=== PATIENT | male | born 1965 | race Caucasian/White ===

== ENCOUNTER 2017-04-15 07:42 | Observation (INO) | payer BC, OTHER ==
[2017-04-15] VITALS (8 sets, daily range): BP systolic 118–135; BP diastolic 68–97
[~2017-04-15] VITALS: Ht 180.3 cm; Wt 97.5 kg
--- NOTE | ~2017-04-15 | P ---
[facility] [place] [address] PROCEDURE REPORT Name: GARCIA BURRIS Room #: 219-P [facility] M..#: [id number] Admission: 04/15/17 Attend Phys: Fred Tellez MD Discharge: Date of : 67 Report #: [id number] THIS REPORT FOR: //name// CC: Martín Tellez Lizy De La Cruzer DATE OF SERVICE: 04/15/2017 PREOPERATIVE DIAGNOSIS: Paroxysmal atrial fibrillation. POSTOPERATIVE DIAGNOSIS: Paroxysmal atrial fibrillation. PROCEDURE PERFORMED: 1. AFib ablation, CPT code 40511. 2. 3D mapping, CPT code 77114. 3. Intracardiac echo, CPT code 92130. HISTORY: The patient is a 51-year-old with a history of recurrent paroxysmal atrial fibrillation, here for AFib ablation. ANESTHESIA: The patient underwent general anesthesia with no anesthesia related complications. DESCRIPTION OF PROCEDURE: The patient underwent informed consent. We discussed the details of the procedure including the risks, which include but are not limited to bleeding, vascular damage, cardiac perforation, stroke and NC. He understood these risks and was willing to proceed. As such, he was brought to the EP laboratory in a fasting and sedated state and prepped and draped in a sterile fashion. I injected lidocaine to the right groin region, obtained access to the right femoral vein times 3, placing an 8-Kyrgyz, 9-Kyrgyz and 7-Kyrgyz locking sheath. Under fluoroscopy, I placed a decapolar catheter easily in the coronary sinus and an ice catheter into the right atrium. Next, I created a detailed 3D geometry of the left atrium using [employer] and this was merged with the cardiac CT scan. Next, the patient was systemically heparinized and a transseptal was performed using a Jermyn needle and a SL1 sheath crossing the left atrium with ease. I then placed a Lasso catheter into the left atrium and created a detailed 3D geometry of the left atrium and took baseline measurements from the pulmonary veins. Of note, the patient had a left superior and left inferior pulmonary vein and the right-sided veins shared a common ostium. Next, I isolated the left superior pulmonary vein with two 4-minute freezes. The left pulmonary vein isolated after 45 seconds into the second freeze. Next, I turned my attention to the left inferior pulmonary vein and I performed 2 freezes, 1 freeze was 4 minutes and the other freeze was 4-1/2 minutes. The vein isolated within 75 seconds of the second [facility] [address] [place] [address] PROCEDURE REPORT Name: GARCIA BURRIS Room #: 219-P [facility]#: [id number] Admission: 04/15/17 Attend Phys: Fred Tellez MD Discharge: Date of : 67 Report #: [id number] freeze. Next, I turned my attention to the right common ostium. This vein required a total of 3 freezes. Of 3 freezes were 4 minutes of duration. The first freeze reached a temperature of -40 degrees. The second freeze reached a temperature of -50 degrees. The second freeze was the best freeze as it encompassed the entire common ostium. The final freeze was more of an inferior freeze and this reached a temperature of -39 degrees. I used my Achieve catheter to verify that the ostium was isolated. Prior to ablation, there were large signals in this region and these were absent post-ablation. I went back and re-interrogated the left-sided veins and these remained isolated. The left superior pulmonary vein has large far field left atrial appendage electrograms. I did perform a pacing and demonstrated there was entrance and exit block in this vein. As such, the procedure was concluded. Pre-ablation, the patient was in sinus rhythm with a sinus cycle length of 975 milliseconds, KS interval 160 milliseconds, QRS duration 80 milliseconds, QT interval 450 milliseconds. Post-ablation, the patient remained in sinus rhythm with a sinus cycle length of 856 milliseconds, KS interval 160 milliseconds, QRS duration 80 milliseconds and QT interval 430 milliseconds. CONCLUSIONS: Successful AFib ablation with isolation of the left superior, left inferior and right common pulmonary veins. By: [id number] Fred Tellez MD /nt
[2017-04-15] MEDS ORDERED: PRADAXA150 MG PO (08:00)
[2017-04-15] MEDS ORDERED: AMLODIPINE-OLM1 EAC2 PO (08:03)
[2017-04-15] MEDS ORDERED: BYSTOLIC10 MG PO (08:03)
[2017-04-15] MEDS ORDERED: LIVALO4 MG PO (08:04)
[2017-04-15] MEDS ORDERED: XANAX 0.5 MG0.5 MG PO (08:05)
[2017-04-15 08:11] LABS: RDW 12.7 % (10.5-14.5); WBC 7.8 thou/uL (4.0-11.0)
[2017-04-15 08:18] LABS: CALCIUM 9.3 mg/dL (8.5-10.1); CREATININE 1.1 mg/dL (0.7-1.3); POTASSIUM 3.9 mmol/L (3.5-5.1)
[2017-04-15 08:23] LABS: PROTIME 9.7 Seconds (9.3-11.4)
[2017-04-15 08:24] LABS: ALBUMIN 3.9 g/dL (3.4-5.0); TOTAL BILIRUBIN 0.4 mg/dL (<0.1-1.0); TOTAL PROTEIN 7.4 g/dL (6.4-8.2)
[2017-04-15 08:25] LABS: ABSOLUTE NEUTROPHILS 4.5 thou/uL (1.4-8.2); BASOPHILS 1.2 % (0.0-2.0); EOSINOPHILS 6.2 % (0.0-3.0); HEMATOCRIT 44.7 % (42.0-52.0); LYMPHOCYTES 23.7 % (24.0-44.0); MCH 31.8 pg (26.0-34.0); MCHC 35.7 g/dL (28.0-37.0); MONOCYTES 10.6 % (1.0-8.0); PLATELET COUNT 252 thou/uL (150-400); POLYS 58.3 % (36.0-66.0); RBC 5.02 mil/uL (4.50-6.00)
[2017-04-15 08:31] LABS: MANUAL DIFF NO
[2017-04-16 03:08] VITALS: BP 118/69
[2017-04-16 07:49] VITALS: BP 122/64
[2017-04-16] MEDS ORDERED: TAMBOCOR 100 M100 M1 PO (11:02)
[2017-04-16 11:05] VITALS: BP 120/76
[2017-04-16 11:20] VITALS: BP 120/76
== END 2017-04-16 12:05 | disposition home or self-care (01) ==
LOC: CATH 07:42 → 2N 09:37 → CATH 13:05 → 2N 14:08 → CATH 15:10 → 2N 04-16 12:05
PROVIDERS: Internal Medicine Cardiovascular Disease
DX: I48.0 Paroxysmal atrial fibrillation (principal); I10 Essential (primary) hypertension; F41.9 Anxiety disorder, unspecified; E78.00 Pure hypercholesterolemia, unspecified; G47.30 Sleep apnea, unspecified
CPT/HCPCS: 62110; 62900; 65040; 70005